=== PATIENT | male | born 1980 | race Caucasian/White ===

== ENCOUNTER 2025-06-28 07:29 | Outpatient (CLI) | payer OTHER, SELFPAY ==
--- NOTE | 2025-06-28 13:16 | P.ANES_ITS ---
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
--- NOTE | 2025-06-28 13:16 | W.ANESCHARGE ---
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
== END 2025-06-28 07:30 | disposition home or self-care (01) ==
LOC: OP CLINIC 07:30
PROVIDERS: PCP Family Medicine; Visit Provider Surgery
DX: K62.5 Hemorrhage of anus and rectum (principal); D12.3 Benign neoplasm of transverse colon; D12.4 Benign neoplasm of descending colon; K64.8 Other hemorrhoids
CPT/HCPCS: 00811; 45385; 46221; 88305; J2704